=== PATIENT | female | born 1995 | race Caucasian/White ===

== ENCOUNTER 2024-12-09 00:34 | Emergency (ER) | payer OTHER ==
[~2024-12-09] VITALS: Ht 162.6 cm; Wt 99.8 kg
[2024-12-09 00:34] VITALS: BP 142/100; O2SAT 98
== END 2024-12-09 01:05 | disposition left against medical advice (07) ==
LOC: ER 00:37
DX: S69.81XA Other specified injuries of right wrist, hand and finger(s), initial encounter (principal); F32.A Depression, unspecified; E28.2 Polycystic ovarian syndrome; Z88.1 Allergy status to other antibiotic agents; Z88.2 Allergy status to sulfonamides; Z90.49 Acquired absence of other specified parts of digestive tract; X58.XXXA Exposure to other specified factors, initial encounter; Y93.89 Activity, other specified; Y92.89 Other specified places as the place of occurrence of the external cause; Y99.8 Other external cause status
CPT/HCPCS: A4606; A4663